=== PATIENT | female | born 1940 | race Caucasian/White ===

== ENCOUNTER 2023-06-24 10:45 | Outpatient (AMB) | payer MEDICARE, SELFPAY ==
--- NOTE | 2023-06-24 10:49 | A.OFFVIS_ITS ---
Intake Vital Signs 06/24/23 10:51 Height 5 ft 2 in Weight 141 lb BMI 25.8 BP 110/74 Blood Pressure Location Rt brachial Position Sitting Respiration 14 Pulse 50 Pulse Source Pulse Oximeter Intake Visit Reasons: Chronic back pain Allergies No Known Allergies Allergy (Verified 06/24/23 10:52) Medication List - Last Reconciled 06/24/23 by Cee Osuna LPN albuterol sulfate 2.5 mg inhalation Q6H amlodipine 5 mg PO DAILY apixaban (Eliquis) 5 mg PO BID brimonidine-timolol 0.2-0.5 % (Combigan) 1 drp ophthalmic (eye) BID brinzolamide 1% (Azopt) 1 drp ophthalmic (eye) BID coQ10 (ubiquinol) (CoQmax Ubiquinol) 400 mg PO DAILY digoxin 125 mcg orally every other day; empagliflozin (Jardiance) 10 mg PO DAILY latanoprostene bunod 0.024% (Vyzulta) 1 drp ophthalmic (eye) DAILY lisinopril 20 mg PO DAILY metoprolol tartrate 100 mg PO BID netarsudil 0.02% (Rhopressa) 1 drp ophthalmic (eye) QPM vitamins A,C,F-trfd-nndyjn 4,296 mcg-226 mg-90 mg (PreserVision AREDS) 1 cap PO BID HPI Chronic back pain HPI Details 82-year-old female presenting today for a new patient evaluation of chronic back pain. The patient has a history of permanent atrial fibrillation on apixaban, nonischemic cardiomyopathy, heart failure with reduced ejection fraction LVEF 20 to 30%, moderate mitral valve regurgitation, peripheral vascular disease, COPD, lung cancer status post chemoradiation therapy, hypertension, and hyperlipidemia, status post endovascular AAA repair. The patient reports back pain. She describes her pain as constant and dull and rates it at 7-8/10 in intensity. She has difficulty with ambulation. She had physical therapy and occupational therapy. The patient was seen in ER at [facility] and then ER in [facility] for severe back pain that started on 05/10/23. She was subsequently admitted to [facility] and managed in-house for couple of days where she underwent rehabilitation with PT and subsequently discharged with oral medications to rehab. The patient had confusion and hallucination from tramadol and oxycodone so these were then stopped. Since then she has been managed with Tylenol. She denies any numbness or paresthesia in her leg. She also denies any radiating pain to her lower extremities. [facility] Medical History (Updated 06/25/23 @ 12:15 by Carl Caicedo MD) Atrial fibrillation Cardiomyopathy Congestive heart failure COPD with asthma Glaucoma Hyperlipidemia Hypertension Hypothyroid IFG (impaired fasting glucose) Left bundle branch block Lung cancer Macular degeneration Pancreatitis Peripheral vascular disease Tobacco abuse Review of Systems Const All systems reviewed & are unremarkable except as noted in HPI and below Physical Exam Vital Signs: Last Vital Signs Pulse 50 06/24/23 10:51 Resp 14 06/24/23 10:51 BP 110/74 06/24/23 10:51 BMI result Body Mass Index 25.8 General: Appears afebrile. Alert and oriented. Mood and affect appropriate. Follows and participates in conversation appropriately. Respiratory effort is unlabored. Able to transition from sit to stand unassisted. Ambulates with bilaterally normal heel strike and toe off. Lumbar spine: No significant tenderness to palpation in the midline overlying the lumbar vertebral bodies. Significant tenderness to palpation overlying the right more than left sacroiliac joint and ligaments. Patient is seated in a wheelchair, unable to complete a satisfactory TSERING exam due to limited knee and hip joint range of motion. Results Reviewed Results Reviewed: CT abdomen pelvis done at [facility] revealed minimal compression deformity of the superior endplate of L3 vertebral body. Assessment & Plan Assessment & Plan (1) Compression fracture of L3 vertebra: Code(s): S32.030A - Wedge compression fracture of third lumbar vertebra, initial encounter for closed fracture (2) Sacroiliitis: Code(s): M46.1 - Sacroiliitis, not elsewhere classified Plan Ordered bone density scan to assess for osteoporosis in setting of vertebral endplate compression deformity. I do not think her current symptoms are related to compression deformity given the lack of tenderness. I did not get a chance to review the films but based on the report it appears to be a very minimal deformity that did not attract interventional attention during her inpatient stay at [facility]. Based on physical exam her symptoms appear to be more consistent with acute onset sacroiliitis related pain, right more than left. We will schedule her for a right SIJ injection. Discussed the risks and benefits of the procedure with the patient in detail. All questions were answered. The patient is on board with the plan. She does not need to hold her apixaban for the procedure, but understands the increased risk of potential hematoma and bruising locally at the site. Refilled lidocaine 5% topical patches for the patient. Justification for interventional therapy: ? Patient with average pain > 6/10 ? Patient has exhausted conservative therapy including opioid therapy, physical therapy, OT, topical creams and patches Scribed for Dr. Caicedo by Alvaro Mccauley, medical claims representative, on 06/24/2023. I, Dr. Caicedo, have personally reviewed and agree with the information entered by the scribe. Orders: Orders XR DEXA axial skeleton 06/24/23 S32.030A - Wedge compression fracture of third lumbar vertebra, initial encounter for closed fracture Medications: New lidocaine 5% leave on most painful area for up to 12 hrs 1 patch topical DAILY 30 ea 6RF Coding Level of Care Code New Pt Level 4 (57772) Diagnoses Compression fracture of L3 vertebra S32.030A Sacroiliitis M46.1
[2023-06-24 10:51] VITALS: BP 110/74; PULSE 50; RESP 14; BMI 25.8
== END 2023-06-24 11:52 | disposition home or self-care (01) ==
PROVIDERS: PCP Physician Assistant Medical; Visit Provider Internal Medicine
DX: S32.030A Wedge compression fracture of third lumbar vertebra, initial encounter for closed fracture (principal); M46.1 Sacroiliitis, not elsewhere classified
CPT/HCPCS: 99204

== ENCOUNTER → 2023-06-24 10:45 | Outpatient (BNVA) | payer MEDICARE, SELFPAY | PROVIDERS: PCP Physician Assistant Medical; Visit Provider Internal Medicine | DX: S32.030A Wedge compression fracture of third lumbar vertebra, initial encounter for closed fracture (principal); X58.XXXA Exposure to other specified factors, initial encounter; Y93.9 Activity, unspecified; Y92.9 Unspecified place or not applicable; Y99.9 Unspecified external cause status; M46.1 Sacroiliitis, not elsewhere classified | CPT/HCPCS: 99202 ==

== ENCOUNTER 2023-07-10 06:07 | Outpatient (REF) | payer MEDICARE, SELFPAY ==
--- NOTE | ~2023-07-10 | FL_ITS ---
EXAMINATION: XR FLUOROSCOPY WITH IMAGES CLINICAL INFORMATION: Sacroiliitis, not elsewhere classified. COMPARISON: None available. TECHNIQUE: Fluoroscopy Supervised By: Dr. Carl Caicedo. Fluoroscopy Time: 0.3 minutes. Cumulative Dose: 7.03 mGy. DAP: 0.915 Gycm2. Images: 3. FINDINGS: Images demonstrate needle placement over the right sacroiliac joint FL/FL guidance in treatment room IMPRESSION: Fluoroscopy guidance for pain management procedure
== END 2023-07-10 06:08 | disposition home or self-care (01) ==
LOC: CF 06:07
PROVIDERS: Visit Provider Internal Medicine
DX: M46.1 Sacroiliitis, not elsewhere classified (principal)
CPT/HCPCS: 27096; J1040

== ENCOUNTER 2023-07-10 09:14 | Outpatient (AMB) | payer MEDICARE, SELFPAY ==
[2023-07-10 09:21] VITALS: BP 98/56; PULSE 56; RESP 14
--- NOTE | 2023-07-10 09:21 | A.OFFVIS_ITS ---
Intake Vital Signs 07/10/23 09:21 BP 98/56 L Blood Pressure Location Rt brachial Position Sitting Respiration 14 Pulse 56 Pulse Source Palpation Intake Visit Reasons: right theraputic SIJ inj Allergies No Known Allergies Allergy (Verified 07/10/23 09:22) HPI right theraputic SIJ inj HPI Details Patient presents for scheduled procedure. Denies any recent cough, cold, infection, fever or other significant changes in medical history since last office visit. [facility] Medical History (Updated 06/25/23 @ 12:15 by Carl Caicedo MD) Atrial fibrillation Cardiomyopathy Congestive heart failure COPD with asthma Glaucoma Hyperlipidemia Hypertension Hypothyroid IFG (impaired fasting glucose) Left bundle branch block Lung cancer Macular degeneration Pancreatitis Peripheral vascular disease Tobacco abuse Physical Exam Vital Signs: Last Vital Signs Pulse 56 07/10/23 09:21 Resp 14 07/10/23 09:21 BP 98/56 L 07/10/23 09:21 Office Procedures Joint Injection/Drain Joint Injection/Drain Details: Sacroiliac Joint Injection, Right The procedure, its benefits, and its risks were explained and written informed consent was obtained from the patient. Immediately prior to starting the procedure, a time-out safety check was conducted. The patient's identification, procedure name, procedure site, and procedure laterality were confirmed with the patient. ? Patient was placed prone on the fluoroscopy table and the lumbosacral area was prepped using ChloraPrep and draped with sterile drape in standard fashion. The C-arm was rotated in a contralateral oblique fashion until the medial border of the iliac crest no longer foreshadowed the posterior sacroiliac joint line. The skin and subcutaneous tissue was anesthetized using 1 mL of 0.75% plain lidocaine with 1.5-inch 25-gauge needle in the middle region of the joint line.? A 3.5-inch 22-gauge spinal needle with small bend on the tip was slowly advanced towards the joint line, coaxial to the x-ray beam. Once bony content was obtained, the needle was easily slid into the intra-articular space.? Intra- articular needle position was confirmed using lateral fluoroscopy.? A total volume of 2.5mL of solution containing 40 mg Depomedrol and rest 0.5% of ropivacaine was injected intra-articularly. The stylet was reinserted and needle was removed. The patient tolerated the procedure well. Patient denied any lower extremity weakness or numbness. Patient was observed for 30 min and was discharged after fulfilling the standard discharge criteria. Coding 63681 - Sacroiliac Procedure code (CPT) selection complete Assessment & Plan Assessment & Plan (1) Sacroiliitis: Code(s): M46.1 - Sacroiliitis, not elsewhere classified Plan Patient is status post right sacroiliac joint steroid injection. Patient tolerated procedure well and was discharged home in stable condition with discharge instructions. All questions were answered. We will follow-up via telephone or in clinic to assess response to therapy. A follow-up appointment was made during today's visit. Orders: Orders FL guidance in treatment room Today M46.1 - Sacroiliitis, not elsewhere classified Coding Level of Care Code Procedure Only Diagnoses Sacroiliitis M46.1 CPT Codes Coding - Joint 9: 22345 - Sacroiliac ([id number])
== END 2023-07-10 10:13 | disposition home or self-care (01) ==
PROVIDERS: PCP Internal Medicine; Visit Provider Internal Medicine
DX: M46.1 Sacroiliitis, not elsewhere classified (principal)
CPT/HCPCS: 27096

== ENCOUNTER 2023-08-09 11:27 | Outpatient (AMB) | payer MEDICARE, SELFPAY ==
--- NOTE | 2023-08-09 11:30 | MHC.OFFVIS ---
Intake Intake Visit Reasons: s/p right theraputic SIJ inj Allergies No Known Allergies Allergy (Verified 07/10/23 09:22) HPI s/p right theraputic SIJ inj HPI Details 83-year-old female who presents today on tele-visit for a status post right therapeutic SIJ injection. The patient reports excellent relief following the procedure for her right lower back symptom. She rates her pain at 0/10 at rest and 3/10 in intensity with movements. Unfortunately, shortly after the procedure the patient patient was seen in the hospital for severe abdominal pain, diverticulitis, and diarrhea from 07/31/23 to 08/02/23. She states that CT scan of the abdomen revealed a new L4 compression fracture on top of the prior L3 compression fracture that she has previously had. She has not completed the DEXA scan that was ordered last time. She was diagnosed with lung cancer stage 3B on 07/01. There is no concern for spinal mets. She denies any fall, trauma, accidents, sneezing, or coughing That may have brought on the new compression fracture. She is not on any anti osteoporosis treatment. Past procedure: 07/10/23: Sacroiliac Joint Injection, Right: resolution of SI joint pain [facility] Medical History (Updated 08/15/23 @ 09:39 by Carl Caicedo MD) Tobacco abuse Peripheral vascular disease Pancreatitis Macular degeneration Lung cancer Left bundle branch block IFG (impaired fasting glucose) Hypothyroid Hypertension Hyperlipidemia Glaucoma COPD with asthma Congestive heart failure Cardiomyopathy Atrial fibrillation Review of Systems Const All systems reviewed & are unremarkable except as noted in HPI and below Results Reviewed Results Reviewed: No imaging is available for review. Assessment & Plan Assessment & Plan (1) Compression fracture of L4 vertebra: Code(s): S32.040A - Wedge compression fracture of fourth lumbar vertebra, initial encounter for closed fracture Qualifiers: Encounter type: initial encounter Qualified Code(s): S32.040A - Wedge compression fracture of fourth lumbar vertebra, initial encounter for closed fracture Plan Ordered DEXA scan and lumbar MRI scan to check for osteoporosis and assess candidacy for kyphoplasty. We will review the DEXA scan and MRI results and consider referral to merchandising assistant for potential treatment of osteoporosis. The patient is hesitant to proceed with a kyphoplasty at this time but will revisit the question once her diagnostic tests are done. I counseled her regarding the natural course of VCFs in setting of untreated osteoporosis. Scribed for Dr. Caicedo by Alvaro Mccauley, health care / medical job titles, on 08/09/2023. I, Dr. Caicedo, have personally reviewed and agree with the information entered by the scribe. Orders: Orders MR lumbar spine wo con 08/09/23 S32.030A - Wedge compression fracture of third lumbar vertebra, initial encounter for closed fracture, S32.040A - Wedge compression fracture of fourth lumbar vertebra, initial encounter for closed fracture Telehealth Telehealth Location of provider rendering services: practice address Location of patient: address on file Patient Identification confirmed using: Name, : Yes Telehealth method: video Patient verbally consented to treatment: Yes Patient verbally consented to billing insurance company: Yes Patient informed of any privacy concerns related to visit: Yes Minutes spent on Phone/Video with Pt.: 13 Coding Level of Care Code Est Pt Level 4 (43626) Diagnoses Compression fracture of L4 vertebra, initial encounter S32.040A Encounter type: initial encounter
== END 2023-08-09 11:56 | disposition home or self-care (01) ==
PROVIDERS: PCP Internal Medicine; Visit Provider Internal Medicine
DX: S32.040A Wedge compression fracture of fourth lumbar vertebra, initial encounter for closed fracture (principal)
CPT/HCPCS: 99214

== ENCOUNTER → 2023-08-09 11:27 | Outpatient (BNVA) | payer MEDICARE, SELFPAY | PROVIDERS: PCP Internal Medicine; Visit Provider Internal Medicine ==

== ENCOUNTER 2023-08-23 10:50 | Outpatient (REF) | payer MEDICARE, SELFPAY ==
--- NOTE | ~2023-08-23 | MM_ITS ---
EXAMINATION: BONE DENSITOMETRY CLINICAL INDICATION: Wedge compression fracture of 3rd lumbar vertebra. COMPARISON: This is the patient's baseline examination. TECHNIQUE: Using a Lastline DXA System (software version: 13.1) manufactured by [employer], dual-energy x-ray absorptiometry was performed of the lumbar spine and left hip. The images are of good technical quality. Summary results are attached. FINDINGS: LEFT FEMUR, NECK: BMD 0.593 g/cm2, Z-score -0.8, T-score -3.2, osteoporosis. LEFT FEMUR, TOTAL: BMD 0.619 g/cm2, Z-score -0.8, T-score -3.1, osteoporosis. AP SPINE L1-L2 (excluding L3 and L4): The data of L1-L4 has been changed to exclude the L3 and L4 vertebral bodies, because degenerative sclerosis at these levels may cause overestimation of lumbar spine density. BMD 0.985 g/cm2, Z-score 0.5, T-score -1.5, osteopenia. IDENTIFIED RISK FACTORS: Menopause, history of fracture (adult), glucocorticoids (chronic), left oophorectomy. HISTORY OF FRACTURE: Spine. MEDICATIONS: None listed. MM/XR DEXA axial skeleton IMPRESSION: 1. DIAGNOSIS: Severe osteoporosis based on the lowest T-score value of -3.2 in the femoral neck and history of fracture applying World Health Organization criteria. 2. 10-YEAR FRACTURE RISK PREDICTION, FRAX: According to the guidelines, FRAX calculation should only be performed on patients in the osteopenia bone density category. Therefore, FRAX was not performed on this patient. 3. Treatment Recommendations: NOF guidelines recommend consideration for treatment in postmenopausal women and men age 50 and older presenting with the following: -A hip or vertebral (clinical or morphometric) fracture. -T-score less than or equal to -2.5 at the femoral neck or spine after appropriate evaluation to exclude secondary causes. -Low bone mass at the hip or spine and a 10-year fracture probability by FRAX of greater than or equal to 3% for hip fracture or greater than or equal to 20% for major osteoporotic fracture based on the [place] adapted WHO algorithm. 4. Other Recommendations: All treatment decisions require clinical judgment and consideration of individual patient factors, including patient preferences, comorbidities, previous drug use, risk factors not captured in the FRAX model (e.g. frailty, falls, vitamin D deficiency, increased bone turnover, interval significant decline in bone density) and possible under or overestimation of fracture risk by FRAX. Additional medical evaluation for secondary cause of low bone mineral density may be appropriate. FUTURE SCAN RECOMMENDATION: People with diagnosed cases of osteoporosis or at high risk for fracture should have regular bone mineral density tests. For patients eligible for Medicare, routine testing is allowed once every 2 years. The testing frequency can be increased to one year for patients who have rapidly progressing disease, those who are receiving or discontinuing medical therapy to restore bone mass, or have additional risk factors.
== END 2023-08-23 10:51 | disposition home or self-care (01) ==
LOC: HO.MAMMO 10:50
PROVIDERS: Visit Provider Internal Medicine
DX: Z13.820 Encounter for screening for osteoporosis (principal); S32.030A Wedge compression fracture of third lumbar vertebra, initial encounter for closed fracture; Z78.0 Asymptomatic menopausal state
CPT/HCPCS: 77080

== ENCOUNTER 2023-09-09 14:34 | Outpatient (AMB) | payer MEDICARE, SELFPAY ==
--- NOTE | 2023-09-09 14:35 | MHC.OFFVIS ---
Intake Intake Visit Reasons: Results of Bone Densitometry (OK for tele per KT) Allergies No Known Allergies Allergy (Verified 07/10/23 09:22) HPI Results of Bone Densitometry (OK for tele per KT) HPI Details 83-year-old female who presents today on tele-visit for a review of DEXA scan. The patient is able to lay down with tolerable pain. She has not completed an MRI scan yet. She completed a DEXA scan. She has not visited an utility appraiser. She has not discussed her osteoporosis with her primary care physician.?She reports pain in her sacrum region around the coccyx. She has pain when sitting down. Past procedure: 07/10/23: Sacroiliac Joint Injection, Right: resolution of SI joint pain [facility] Medical History (Updated 09/09/23 @ 14:42 by Carl Caicedo MD) Tobacco abuse Peripheral vascular disease Pancreatitis Macular degeneration Lung cancer Left bundle branch block IFG (impaired fasting glucose) Hypothyroid Hypertension Hyperlipidemia Glaucoma COPD with asthma Congestive heart failure Cardiomyopathy Atrial fibrillation Review of Systems Const All systems reviewed & are unremarkable except as noted in HPI and below Physical Exam Results Reviewed Results Reviewed: 08/23/23: BONE DENSITOMETRY FINDINGS: LEFT FEMUR, NECK: BMD 0.593 g/cm2, Z-score -0.8, T-score -3.2, osteoporosis. LEFT FEMUR, TOTAL: BMD 0.619 g/cm2, Z-score -0.8, T-score -3.1, osteoporosis. AP SPINE L1-L2 (excluding L3 and L4): The data of L1-L4 has been changed to exclude the L3 and L4 vertebral bodies, because degenerative sclerosis at these levels may cause overestimation of lumbar spine density. BMD 0.985 g/cm2, Z-score 0.5, T-score -1.5, osteopenia. IDENTIFIED RISK FACTORS: Menopause, history of fracture (adult), glucocorticoids (chronic), left oophorectomy. HISTORY OF FRACTURE: Spine. MEDICATIONS: None listed. IMPRESSION: 1. DIAGNOSIS: Severe osteoporosis based on the lowest T-score value of -3.2 in the femoral neck and history of fracture applying World Health Organization criteria. 2. 10-YEAR FRACTURE RISK PREDICTION, FRAX: According to the guidelines, FRAX calculation should only be performed on patients in the osteopenia bone density category. Therefore, FRAX was not performed on this patient. Assessment & Plan Assessment & Plan (1) Coccydynia: Code(s): M53.3 - Sacrococcygeal disorders, not elsewhere classified (2) Compression fracture of L4 vertebra: Code(s): S32.040A - Wedge compression fracture of fourth lumbar vertebra, initial encounter for closed fracture Qualifiers: Encounter type: initial encounter Qualified Code(s): S32.040A - Wedge compression fracture of fourth lumbar vertebra, initial encounter for closed fracture (3) Compression fracture of L3 vertebra: Code(s): S32.030A - Wedge compression fracture of third lumbar vertebra, initial encounter for closed fracture Plan I encouraged the patient to follow up with Dr. Thomas for treatment of osteoporosis. I ordered an x-ray of the coccyx for further evaluation of the coccyx. Recommended to use a coccyx pillow and to complete the pending MRI scan CARLOS. The patient will follow up to review the results. Scribed for Dr. Caicedo by Alvaro Mccauley, medical assistant dermatology, on 09/09/2023. I, Dr. Caicedo, have personally reviewed and agree with the information entered by the scribe. Orders: Orders XR sacrum coccyx min 2V 09/09/23 M53.3 - Sacrococcygeal disorders, not elsewhere classified Telehealth Telehealth Location of provider rendering services: practice address Location of patient: address on file Patient Identification confirmed using: Name, : Yes Telehealth method: voice only Patient verbally consented to treatment: Yes Patient verbally consented to billing insurance company: Yes Patient informed of any privacy concerns related to visit: Yes Minutes spent on Phone/Video with Pt.: 15 Coding Level of Care Code Tele Est Pt Level 3 (59882) Diagnoses Coccydynia M53.3 Compression fracture of L4 vertebra, initial encounter S32.040A Encounter type: initial encounter Compression fracture of L3 vertebra S32.030A
== END 2023-09-09 14:35 | disposition home or self-care (01) ==
LOC: HO.PMC 14:34
PROVIDERS: Visit Provider Internal Medicine
DX: M53.3 Sacrococcygeal disorders, not elsewhere classified (principal); S32.040A Wedge compression fracture of fourth lumbar vertebra, initial encounter for closed fracture; S32.030A Wedge compression fracture of third lumbar vertebra, initial encounter for closed fracture
CPT/HCPCS: 99442

== ENCOUNTER → 2023-09-09 14:34 | Outpatient (BNVA) | payer MEDICARE, SELFPAY | PROVIDERS: Visit Provider Internal Medicine ==